=== PATIENT | male | born 2005 | race Caucasian/White ===

== ENCOUNTER 2024-03-31 14:46 | Emergency (ER) | payer MEDICAID ==
[~2024-03-31] VITALS: Ht 175.3 cm; Wt 90.7 kg
[2024-03-31 16:16] VITALS: BP 116/71; O2SAT 100
== END 2024-03-31 16:16 | disposition home or self-care (01) ==
LOC: ER 14:46
DX: S92.192A Other fracture of left talus, initial encounter for closed fracture (principal); W51.XXXA Accidental striking against or bumped into by another person, initial encounter; Y93.66 Activity, soccer; Y92.89 Other specified places as the place of occurrence of the external cause; Y99.8 Other external cause status
CPT/HCPCS: 73610; A4606; A4663